=== PATIENT | female | born 1980 | race Caucasian/White ===

== ENCOUNTER 2020-06-18 21:27 | Outpatient (REF) | payer BC, SELFPAY ==
[2020-06-21 13:15] LABS: Patient Race White; SARS-CoV-2 RNA Undetected (Undetected); SARS-CoV-2 Specimen Source Nasal
== END 2020-06-18 21:47 ==
LOC: NCHCN 21:27
PROVIDERS: Visit Provider Family Medicine
DX: Z20.828 Contact with and (suspected) exposure to other viral communicable diseases (principal)
CPT/HCPCS: U0003

== ENCOUNTER 2021-06-10 18:52 | Outpatient (REF) | payer BC, SELFPAY ==
[2021-06-10 20:55] LABS: HCT 42.3 % (36.0-46.0); MCHC 33.1 % (32.0-36.0); MCV 93.6 fL (80-95); MPV 10.1 fL (8.0-11.0); Platelet Count 263 10^3/uL (130-400); RBC 4.52 10^6/uL (3.93-5.22); RDW-SD 41.7 fL; WBC 5.78 10^3/uL (4.4-10.8)
[2021-06-10 21:13] LABS: ALT 43 U/L (14-59); AST 23 U/L (15-37); Alkaline Phosphatase 57 U/L (46-116); Anion Gap 6.9 mmol/L (3-11); BUN 18 mg/dL (7-18); Bilirubin, Total 0.5 mg/dL (0.2-1.0); CO2 30.1 mmol/L (21.0-32.0); CREATININE 1.2 mg/dL (0.55-1.02); Calcium 9.1 mg/dL (8.5-10.1); Chloride 109 mmol/L (98-107); Estimated GFR 49.27 (mL/min/1.73m2); Glucose 83 mg/dL (74-106); Potassium 4.6 mmol/L (3.5-5.1); Sodium 146 mmol/L (136-145); Total Protein 7.4 g/dL (6.4-8.2)
== END 2021-06-10 18:53 | disposition home or self-care (01) ==
LOC: NCHCN 18:52
PROVIDERS: Visit Provider Family Medicine
DX: E16.1 Other hypoglycemia (principal); G43.109 Migraine with aura, not intractable, without status migrainosus; Z00.00 Encounter for general adult medical examination without abnormal findings
CPT/HCPCS: 80053; 85027

== ENCOUNTER 2023-11-19 15:20 | Outpatient (REF) | payer BC, SELFPAY ==
--- NOTE | 2023-11-19 14:25 | PAPFT_PTH ---
PATIENT: Michelle Tatum LOC: [facility] U#:[id number] AGE/SX: 43/F ROOM: RE11/19/[address]: Radha Real DO : 1980 BED: DIS: 11/19/2023 SPEC #: [id number] RECD: 11/19/23 18:22 STATUS: GERARDO REQ #: [id number] CHACORTA: 11/19/23 14:[address]: Radha Real DEPT: [facility] Cytology RECD BY: Leslie Holman ENTERED: 11/19/23 18:22 SP TYPE: PAPFT OTHR DR: Unknown,Unknown Tissues: 1 - CX/ENDOCX FOR PAP SMEARS Procedures: PAP THIN PREP/[facility] Screening HPV DNA PROBE Comments: [id number]
== END 2023-11-19 15:21 | disposition home or self-care (01) ==
LOC: LBN 15:20
PROVIDERS: Visit Provider Obstetrics & Gynecology
DX: N89.8 Other specified noninflammatory disorders of vagina (principal); Z12.4 Encounter for screening for malignant neoplasm of cervix; N72 Inflammatory disease of cervix uteri
CPT/HCPCS: 88142; 87480; 87510; 87624; 87660

== ENCOUNTER → 2023-12-04 00:05 | Outpatient (CLI) | payer BC, SELFPAY ==
--- NOTE | 2023-12-04 06:30 | DI.US_ITS ---
Exam(s) US PELVIS TRANSVAGINAL EXAM: US PELVIS TRANSVAGINAL CLINICAL HISTORY: iud location,strings lost,T83.32xa. TECHNIQUE: Transabdominal and transvaginal pelvic ultrasound was performed using standard protocol. COMPARISON: No exams were available for comparison FINDINGS: UTERUS: Position: Anteverted. Size: 10.9 long by 5.4 AP by 8.4 transverse cm Endometrium: 0.6 cm. Normal for patient's menstrual status. The IUD is in good position. Myometrium: There are several myometrial masses present. The largest is seen anteriorly in the body and measures 4.7 x 4.3 x 4.0 cm. The next largest is seen posteriorly in the body and measures 3 x 3 .8 x 3.9 cm. Cervix: Unremarkable. OVARIES: Right: 4.9 x 4.4 x 4.4 cm Cyst or mass: No suspicious cystic or solid masses. There is a 5 cm simple cyst on the right ovary. Left: 5.2 x 3.2 x 4.7 cm Cyst or mass: There is a 3 x 3 x 4.2 cm cyst on the left ovary. DOPPLER: Color: Blood flow cannot be obtained in the ovaries at this time. CUL-DE-SAC: Free fluid: None. Other: None. IMPRESSION: 1. Enlarged fibroid uterus. 2. The IUD is seen in the fundal endometrial canal 3. Bilateral ovarian cysts. There is a 5 cm right ovarian cyst. Follow-up examination in 6 8 weeks is recommended for re-evaluation of the cysts. DATA REPOSITORY:
--- NOTE | 2023-12-04 06:30 | DI.MAMMO_ITS ---
Exam(s) MAMMO SCREENING EXAM: MAMMO SCREENING CLINICAL HISTORY: screening,z12.39 TECHNIQUE: Mammograms were interpreted according to the usual protocol including computer analysis w [employer] CAD system, tomosynthesis and C-view imaging. COMPARISON: 2014 FINDINGS: The breasts are composed of heterogeneously dense fibroglandular densities, Breast Density category C . No suspicious masses or suspicious microcalcifications are seen. No skin thickening or abnormal axillary lymph nodes are seen. There has been no significant change from the prior exam. IMPRESSION: BI-RADS Category 1, Negative mammogram. Yearly screening mammography is recommended. Breast Density Category C, heterogeneously Dense. The mammogram demonstrates the patient's breast tissue is dense. Dense breast tissue is very common a nd is not abnormal but dense breast tissue can make it harder to find cancer on a mammogram. Also, de nse breast tissue may increase breast cancer risk. This information about the result of the mammogram report was provided to the patient to raise their awareness. Use this report when you speak with the patient about their risks for breast cancer, which includes their family history. At that time, you may recommend additional screening tests (Ultrasound or MRI) as they might be useful based on their r isk. A negative radiographic report should not delay biopsy if a dominant or clinically suspicious mass is present. Up to ten percent of cancers are not identified on mammography. A negative report may reinforce clinical impression. Adenosis and dense breasts may obscure an underlying neoplasm. False positive reports average 6 to 10%.
== END ==
PROVIDERS: Visit Provider Obstetrics & Gynecology
DX: T83.32XA Displacement of intrauterine contraceptive device, initial encounter (principal); Z12.31 Encounter for screening mammogram for malignant neoplasm of breast; R92.30 Dense breasts, unspecified; N85.2 Hypertrophy of uterus; N83.201 Unspecified ovarian cyst, right side; N83.202 Unspecified ovarian cyst, left side
CPT/HCPCS: 77063; 77067; 76830; 76856

== ENCOUNTER 2024-03-09 08:52 | Day surgery (SDC) | payer BC, SELFPAY ==
[2024-03-09 09:11] VITALS: BP 124/79; PULSE 83; RESP 20; TEMP 36.8; O2SAT 99
--- NOTE | 2024-03-09 09:44 | W.ANESPRE ---
General Info Date of Service Date Performed: 03/09/24 Height: 5 ft Weight: 65.771 kg Body Mass Index (BMI): 28.3 Surgical Procedure: Operation Date: 03/09/24 10:25 Proposed Procedure Side Surgeon p Removal & Insertion of IUD (Paragard) Radha Real DO Meds Allergies and Home Medications Allergies Allergy/AdvReac Type Severity Reaction Status Date / Time Sulfa (Sulfonamide Allergy Severe hives Verified 03/09/24 09:15 Antibiotics) Home Medication ?Medication ?Instructions ?Recorded spironolactone 50 mg tablet 50 mg PO BID 03/07/24 (Aldactone) Current Visit Medications: Current Medications Generic Name Dose Route Start Last Admin Trade Name Freq PRN Reason Stop Dose Admin Sodium Chloride 1,000 mls @ 0 mls/hr 03/09/24 06:00 Saline 1000ml Bag IV 03/09/24 23:59 INFUSION JOSE IV Miscellaneous Supplies 1 each 03/09/24 06:00 Iv Access IV 03/09/24 23:59 DIRECTED JOSE Sodium Chloride 0 ml 03/09/24 06:00 Normal Saline Flush 10 Ml Syr IV 03/09/24 23:59 PRN PRN Sodium Chloride 0 ml 03/09/24 06:00 Normal Saline 10 Ml Vial IJ 03/09/24 23:59 DIRECTED PRN Sterile Water 0 ml 03/09/24 06:00 Water,Injection,Sterile 10 Ml Vial IJ 03/09/24 23:59 DIRECTED PRN PFSH Active Problems Active Problems: Problem Status Onset Code Uterine fibroid Acute D25.9 Well woman exam with routine gynecological exam Acute Z01.419 Vaginal discharge Acute N89.8 IUD strings lost Acute T83.32XA History of irregular menstrual bleeding Acute Z87.42 Medical History Medical History Acne Surgical History Surgical History ganglion cyst remova R wrist Tobacco Smoking/Tobacco Use Status: Former Tobacco Use Alcohol Alcohol Intake: current Alcohol intake frequency: holidays/special occasions only Substance Use Substance use: Never Substance use type: does not use Vital Signs and Lab Results Vital Signs Most Recent Vital Signs in EMR: Most Recent Vital Signs Temp Pulse Resp BP Pulse Ox 36.8 C 83 20 124/79 99 03/09/24 09:11 08/14/24 09:11 03/09/24 09:11 03/09/24 09:11 03/09/24 09:11 Point of Care Results Point of Care Results: POC- Test(urine) Negative 03/09/24 09:41 Lab Results Blood Type / Crossmatch: No Data to Display Complete Blood Count: No Data to Display Complete Metabolic Panel: No Data to Display Liver Function Panel: No Data to Display Coagulation Panel: No Data to Display Cardiac Panel: No Data to Display Arterial Blood Gas: No Data to Display Venous Blood Gas: No Data to Display Pancreas Panel: No Data to Display Thyroid Panel: No Data to Display Infectious Disease: No Data to Display Blood Cultures: No Data to Display Toxicology Panel: No Data to Display Panel: No Data to Display Anesthesia Assessment and Plan Anesthesia History Personal History: No History of Anesthesia Complications Family History: No Family History of Anesthesia Complications Exercise Tolerance Exercise Tolerance: Metabolic Equivalents>4 Pertinent Negatives Pertinent Negatives: No Symptoms of GERD, No Major Cardiovascular Symptoms or Complaints, No Major Pulmonary Symptoms or Complaints and No History of CVA/TIA Cardiac & Pulmonary Exam Cardiac Exam: Normal S1/S2 Heart Sounds Pulmonary Exam: Clear Bilateral Breath Sounds Implantable Cardiac Device Does patient have a Pacemaker or an ICD?: No Airway Exam Known Difficult Airway: No Mallampati Class: 2 Mouth Opening: Normal (> 3cm) Thyromental Distance: Greater than 3 cm Neck Range of Motion: Full ROM Neck Circumference: Normal Teeth Condition: Normal Dentition ASA Classification ASA Score: ASA 2 Emergency Case?: No NPO Status NPO Status: NPO Clears >2 hours, Solids >8 hours Status Status: Negative HCG Anesthesia Plan Resuscitation Status: Full Code Anesthesia Technique: General Anesthesia Airway Planned: Natural Airway Monitors Used: Standard Monitors Preoperative Comments:: Anxious, plan sedation THAI preop
[2024-03-09 09:47] VITALS: BMI 28.3
[2024-03-09] MEDS: Lactated Ringers 1,000 ML 125 ML IV (10:15)
[2024-03-09 10:31] VITALS: BP 113/74; PULSE 64; RESP 18; TEMP 36.4; O2SAT 97
--- NOTE | 2024-03-09 10:33 | W.PM.OP ---
Date of service: 03/09/24 Time of Service: 10:33 Operative Note Operative Note DATE OF PROCEDURE: 03/09/24 PRE-OP DIAGNOSIS: ParaGard in situ, lost IUD string. Desired contraception with ParaGard IUD POST-OP DIAGNOSIS: same PROCEDURE: Exam under anesthesia, removal of retained IUD, placement of ParaGard SURGEON: Radha Real ANESTHESIA TYPE: General:No Airway Refer to Anesthesia Record ESTIMATED BLOOD LOSS: 5 PATHOLOGY: none sent COMPLICATIONS: None Implants: ParaGard IUD [id number] expiration 07/27/2022 Indications: Retained IUD with no visualization of strings. Desire for ongoing contraception with ParaGard IUD Findings: Bulky uterus, approximately 10 weeks size. Uterus sounded to 10 cm. Successful removal of ParaGard IUD in toto. Placement of a new IUD system Procedure Description: After full informed consent was obtained, patient was taken the operating suite with an IV running. General anesthesia was administered and the placement was then placed in the modified dorsolithotomy position in [facility]. She had a vaginal preparation performed. A timeout was held. Exam under anesthesia revealed a uterus that was midline and mobile, slightly bulky, approximately 10 weeks size. Speculum was inserted into the vaginal vault and a single-tooth tenaculum used to grasp the anterior lip of the cervix. With a Guerline clamp the strings of the IUD were grasped within the endocervical canal and the previous ParaGard system removed in toto. At this point, the uterus sounded to 10 cm and ParaGard system with lot #[id number] expiration 07/27/2022 was inserted to the uterine fundus and deployed. Strings were cut to 2 cm. Tenaculum was removed and puncture sites were hemostatic. Speculum was removed from the vaginal vault. Patient awoke from anesthesia was taken the same-day surgical area in stable condition. Implant: Intrauterine IUD, ParaGard. Lot [id number] expiration 07/27/2022 Complications: None apparent Pathology: None sent
--- NOTE | 2024-03-09 10:57 | W.ANESPOSTOP ---
Postoperative Evaluation Date, Time and Location Date Performed: 03/09/24 Time Performed: 10:57 Patient Location: Day Surgery Unit Vital Signs Most Recent Imported Vital Signs: Most Recent Vital Signs Temp Pulse Resp BP Pulse Ox 36.4 C L 64 18 113/74 97 03/09/24 10:31 03/09/24 10:31 03/09/24 10:31 03/09/24 10:31 03/09/24 10:31 Pain Score Most Recent Pain Score: Most Recent Pain Score Pain Level 0 03/09/24 10:31 Assessment Mental Status: Awake (Alert & Oriented to Patient Baseline) Airway and Respiratory Function: Patent airway with normal (patient baseline) respiratory exam Cardiovascular Function: Hemodynamically Stable Hydration Status: Adequately Hydrated Nausea & Vomiting: No Nausea or Vomiting Pain: Pain is tolerable per patient Peripheral Nerve Block: Patient did not receive a nerve block
[2024-03-09 10:58] VITALS: BP 111/66; PULSE 63; RESP 16; TEMP 36.7; O2SAT 100
== END 2024-03-09 12:03 | disposition home or self-care (01) ==
PROVIDERS: PCP Nurse Practitioner Family; Visit Provider Obstetrics & Gynecology
PROC: (CPT 58300; principal; 2024-03-09 10:15)
DX: T83.32XA Displacement of intrauterine contraceptive device, initial encounter (principal)
CPT/HCPCS: 58300; 58301; 81025; J1100; J1885; J2001; J2250; J2405; J2704

== ENCOUNTER 2025-01-23 17:54 | Outpatient (REF) | payer OTHER, SELFPAY ==
[2025-01-23 21:09] LABS: Hemoglobin A1C 5.1 % (<5.7)
[2025-01-23 21:16] LABS: ALT 26 U/L (14-59); AST 17 U/L (15-37); Albumin 3.7 g/dL (3.4-5.0); Alkaline Phosphatase 73 U/L (46-116); Anion Gap 8.3 mmol/L (3-11); BUN 17 mg/dL (7-18); Bilirubin, Total 0.4 mg/dL (0.2-1.0); CO2 26.7 mmol/L (21.0-32.0); CREATININE 0.6 mg/dL (0.55-1.02); Calcium 8.9 mg/dL (8.5-10.1); Calculated LDL 119 mg/dL (<100); Chloride 106 mmol/L (98-107); Cholesterol 193 mg/dL (<200); Estimated GFR 112.04 (mL/min/1.73m2); Glucose 95 mg/dL (74-106); HDL Cholesterol 52 mg/dL (>or=50); Potassium 4.5 mmol/L (3.5-5.1); Sodium 141 mmol/L (136-145); TSH (W/Ref FT4) 1.04 uIU/mL (0.36-3.74); Total Protein 6.4 g/dL (6.4-8.2); Triglyceride 111 mg/dL (<150)
== END 2025-01-23 17:55 | disposition home or self-care (01) ==
LOC: NCHCN 17:54
PROVIDERS: PCP Nurse Practitioner Family; Visit Provider Nurse Practitioner Family
DX: E66.811 Obesity, class 1 (principal); L70.0 Acne vulgaris
CPT/HCPCS: 80053; 80061; 83036; 84443